=== PATIENT | female | born 1965 | race Caucasian/White ===

== ENCOUNTER → 2019-08-19 | Outpatient (CLI) | payer MEDICAID ==
--- NOTE | 2019-08-19 09:44 | KCIC ---
Bilateral digital screening mammograms with 3-D tomosynthesis: Reason for examination: Routine screening. No previous exams available for comparison. Bilateral mammograms in CC and oblique projections were obtained with 2-D imaging and 3-D tomosynthesis imaging on a Siemens Inspiration unit and reviewed on the workstation. Interpretation was made with the benefit of CAD. The skin and nipples show no abnormalities. No abnormal axillary lymph nodes are seen. The breast parenchyma is heterogeneously dense. (Breast density: Category C.) There is some nodular asymmetry at the 10:00 B position of the right breast. Recommend further evaluation with coned compression views and ultrasound. There are no other dominant masses, suspicious calcifications or architectural distortion. Impression: Nodular asymmetry at the 10:00 B position of the right breast. Recommend further evaluation with coned compression views and ultrasound. Your patient's mammogram demonstrates that she has dense breast tissue (breast density category C or D), which could hide abnormalities, and if she has other risk factors for breast cancer that have been identified, she might benefit from supplemental screening tests that may be suggested by you as her ordering physician. Dense breast tissue, in and of itself, is a relatively common condition. Therefore, this information is not provided to cause undue concern, but rather to raise your awareness and to promote discussion with your patient regarding the presence of other risk factors, in addition to dense breast tissue. Your patient's mammography results will be sent to her. BI-RAD Category 0: Incomplete. Needs additional imaging evaluation. "Our facility is accredited by the [employer] Mammography [employer]." This patient's information has been entered into a reminder system for the patient to be notified with the results of her examination and a target date for the next mammogram. Electronically signed by: Tegan Schmidt MD (08/19/2019 9:41 AM) [email or web address]
== END | disposition home or self-care (01) ==
LOC: KCIC MAMMO 08:07
PROVIDERS: ATTEND Nurse Practitioner Family
DX: Z12.31 Encounter for screening mammogram for malignant neoplasm of breast (principal); N64.89 Other specified disorders of breast
CPT/HCPCS: 77067

== ENCOUNTER → 2019-09-28 | Outpatient (CLI) | payer MEDICAID ==
--- NOTE | 2019-09-28 12:51 | KCIC ---
Right breast diagnostic digital mammograms: Reason for examination: Nodular asymmetry at the 10:00 B position on screening mammogram. Comparison is made to mammographic exam dated 08/19/2019. Coned compression views were obtained and oblique projections. With these additional views, there is some dense fibroglandular tissue but no spiculated mass is seen. Ultrasound to follow. IMPRESSION: Dense fibroglandular tissue in the area of mammographic concern with no suspicious mass seen. Ultrasound to follow. BI-RADS Category 0: Incomplete. Needs additional imaging evaluation. Right breast ultrasound: Ultrasound examination of the right breast was performed in the area of mammographic concern and the right axilla. In the 10:00 position 6 cm from the nipple, there is a small 4.9 mm hypoechoic lesion probably representing a cyst with some adjacent ductal ectasia and fibrocystic changes. There is some ductal ectasia present. No suspicious-appearing lesions are seen. No abnormal appearing lymph nodes are seen in the axilla. IMPRESSION: Small 4.9 mm in nodule probably representing a cyst at the 10:00 position with some adjacent ductal ectasia and fibrocystic change. No suspicious abnormalities are seen. Recommend 6 month follow-up with mammograms and ultrasound. BI-RADS Category 3: Probably Benign. "Our facility is accredited by the [employer] Mammography [employer]." This patient's information has been entered into a reminder system for the patient to be notified with the results of her examination and a target date for the next mammogram. Electronically signed by: Tegan Schmidt MD (09/28/2019 12:48 PM) [email or web address]
== END | disposition home or self-care (01) ==
LOC: KCIC MAMMO 09:24
PROVIDERS: ATTEND Nurse Practitioner Family
DX: R92.2 Inconclusive mammogram (principal); N63.11 Unspecified lump in the right breast, upper outer quadrant
CPT/HCPCS: 76641; 77065